=== PATIENT | male | born 1985 | race African-American/Black ===

== ENCOUNTER 2017-02-04 22:00 | Emergency (ER) | payer MEDICAID, OTHER ==
[2017-02-04 22:12] VITALS: BP 129/80
== END 2017-02-04 22:20 | disposition short-term general hospital (02) ==
LOC: MERGE 22:14 → ED 22:14 → EDBD 22:14 → ED 22:20
DX: S31.115A Laceration without foreign body of abdominal wall, periumbilic region without penetration into peritoneal cavity, initial encounter (principal); G89.11 Acute pain due to trauma; W26.0XXA Contact with knife, initial encounter; Y93.89 Activity, other specified; Y92.89 Other specified places as the place of occurrence of the external cause; Y99.8 Other external cause status
CPT/HCPCS: 99285

== ENCOUNTER 2017-03-03 04:35 | Emergency (ER) | payer MEDICAID, OTHER ==
[~2017-03-03] VITALS: Ht 185.4 cm; Wt 84.3 kg
[2017-03-03 05:52] VITALS: BP 128/74
== END 2017-03-03 06:02 | disposition home or self-care (01) ==
LOC: ED 05:13
DX: B35.3 Tinea pedis (principal); Z59.0 Homelessness
CPT/HCPCS: 99282

== ENCOUNTER 2020-12-02 16:07 | Emergency (ER) | payer MEDICAID ==
[~2020-12-02] VITALS: Ht 185.4 cm; Wt 116.1 kg
[2020-12-02 16:10] VITALS: BP 177/88
--- NOTE | 2020-12-02 16:24 | NUR ---
Patient given discharge instructions and Rx, they have confirmed that they understand the instructions. Patient ambulatory with steady gait.
== END 2020-12-02 16:26 | disposition home or self-care (01) ==
LOC: ED 16:20
DX: L25.9 Unspecified contact dermatitis, unspecified cause (principal)
CPT/HCPCS: 99283